=== PATIENT | female | born 1980 | race Caucasian/White ===

== ENCOUNTER 2017-06-02 17:59 | Emergency (ER) | payer MEDICAID | END 2017-06-02 19:46 | disposition home or self-care (01) | LOC: E/R 17:59 | DX: J06.9 Acute upper respiratory infection, unspecified (principal) | CPT/HCPCS: 99284; Z7502 ==

== ENCOUNTER 2017-07-25 20:29 | Emergency (ER) | payer MEDICAID | END 2017-07-26 02:00 | disposition home or self-care (01) | LOC: FTE 20:29 | DX: J20.9 Acute bronchitis, unspecified (principal) | CPT/HCPCS: 99284; Z7502 ==

== ENCOUNTER 2018-05-21 09:49 | Emergency (ER) | payer MEDICAID ==
[2018-05-21 10:37] LABS: ADD UMIC YES; UR ASCORBIC ACID NEGATIVE (NEGATIVE); UR BILIRUBIN (Dip) NEGATIVE (NEGATIVE); UR BLOOD (Dip) 2+ mg/dL (NEGATIVE); UR CLARITY SLIGHTLY CLOUDY (CLEAR); UR COLOR YELLOW (YELLOW); UR GLUCOSE (Dip) NEGATIVE (NEGATIVE); UR KETONES (Dip) NEGATIVE (NEGATIVE); UR LEUKOCYTE ESTERASE (Dip) 1+ Leu/ul (NEGATIVE); UR MUCUS FEW /HPF (NONE SEEN); UR NITRITE (Dip) NEGATIVE (NEGATIVE); UR RBC 3 /HPF (0-5); UR SPECIFIC GRAVITY (Dip) 1.011 (1.003-1.030); UR SQUAMOUS EPITHELIAL CELL FEW /HPF (FEW); UR TOTAL PROTEIN (Dip) NEGATIVE (NEGATIVE); UR UROBILINOGEN (Dip) NEGATIVE (NEGATIVE); UR WBC 6 /HPF (0-5)
[2018-05-21] MEDS: PHENAZOPYRIDINE 100 MG TAB PO (10:52)
[2018-05-21] MEDS: CEPHALEXIN 500 MG CAP PO (10:52)
== END 2018-05-21 11:09 | disposition home or self-care (01) ==
LOC: FTE 09:49
DX: N30.00 Acute cystitis without hematuria (principal)
CPT/HCPCS: 81001; 81025; 99283

== ENCOUNTER 2018-05-26 06:13 | Emergency (ER) | payer MEDICAID ==
[2018-05-26] MEDS: SOD CHLORIDE 0.9% 500 ML IV (07:07)
[2018-05-26] MEDS: ONDANSETRON 4 MG INJ IV (07:08)
[2018-05-26] MEDS: morphine 4 MG/ML VIAL IV (07:08)
[2018-05-26 07:16] LABS: ADD MAN DIFF? NO
[2018-05-26 07:17] LABS: BASOPHILS % 0.3 % (0.0-2.0); EOSINOPHILS # 0.3 10^3/ul (0.0-0.5); EOSINOPHILS % 2.9 % (0.0-7.0); HEMATOCRIT 39.9 % (37.0-47.0); LYMPHOCYTES # 2.3 10^3/ul (0.8-2.9); LYMPHOCYTES % 24.4 % (15.0-51.0); MEAN CORPUSCULAR HEMOGLOBIN 28.5 pg (29.0-33.0); MEAN CORPUSCULAR HGB CONC 32.6 g/dl (32.0-37.0); MEAN CORPUSCULAR VOLUME 87.5 fl (82.0-101.0); MEAN PLATELET VOLUME 10.3 fl (7.4-10.4); MONOCYTE # 0.6 10^3/ul (0.3-0.9); MONOCYTES % 6.3 % (0.0-11.0); PLATELET COUNT 227 10^3/UL (140-415); RED BLOOD COUNT 4.56 10^6/ul (4.20-5.40); RED CELL DISTRIBUTION WIDTH 13.1 % (11.5-14.5)
[2018-05-26 07:17] LABS: WHITE BLOOD COUNT 9.3 10^3/ul (4.8-10.8)
[2018-05-26 07:27] LABS: ADD UMIC YES; UR ASCORBIC ACID NEGATIVE (NEGATIVE); UR BACTERIA FEW /HPF (NONE SEEN); UR BILIRUBIN (Dip) NEGATIVE (NEGATIVE); UR BLOOD (Dip) 2+ mg/dL (NEGATIVE); UR CLARITY SLIGHTLY CLOUDY (CLEAR); UR COLOR YELLOW (YELLOW); UR GLUCOSE (Dip) NEGATIVE (NEGATIVE); UR KETONES (Dip) NEGATIVE (NEGATIVE); UR LEUKOCYTE ESTERASE (Dip) 3+ Leu/ul (NEGATIVE); UR NITRITE (Dip) NEGATIVE (NEGATIVE); UR RBC 16 /HPF (0-5); UR SPECIFIC GRAVITY (Dip) 1.012 (1.003-1.030); UR SQUAMOUS EPITHELIAL CELL MODERATE /HPF (FEW); UR TOTAL PROTEIN (Dip) NEGATIVE (NEGATIVE); UR UROBILINOGEN (Dip) NEGATIVE (NEGATIVE); UR WBC 18 /HPF (0-5)
[2018-05-26 07:41] LABS: ALANINE AMINOTRANSFERASE 28 IU/L (13-69); ALBUMIN 4.2 g/dl (3.3-4.9); ALBUMIN/GLOBULIN RATIO 1.02; ALKALINE PHOSPHATASE 82 IU/L (42-121); ANION GAP 8 (5-13); ASPARTATE AMINO TRANSFERASE 34 IU/L (15-46); BILIRUBIN,INDIRECT 0.2 mg/dl (0-1.1); BILIRUBIN,TOTAL 0.2 mg/dl (0.2-1.3); BLOOD UREA NITROGEN 17 mg/dl (7-20); CALCIUM 9.1 mg/dl (8.4-10.2); CARBON DIOXIDE 28 mmol/L (21-31); CHLORIDE 106 mmol/L (97-110); CREATININE 0.53 mg/dl (0.44-1.00); Estimated GFR > 60 mL/min (>60); GLUCOSE 131 mg/dl (70-220); LIPASE 96 U/L (23-300); POTASSIUM 4.4 mmol/L (3.5-5.1); SODIUM 142 mmol/L (135-144); TOTAL PROTEIN 8.3 g/dl (6.1-8.1)
[2018-05-26] MEDS: CEFTRIAXONE 1 GM/50 ML (PMX) 50 ML IVPB (08:12)
[2018-05-26] MEDS: ACETAMINOPHEN 500 MG TAB PO (09:00)
== END 2018-05-26 09:39 | disposition home or self-care (01) ==
LOC: E/R 06:13
DX: N39.0 Urinary tract infection, site not specified (principal)
CPT/HCPCS: 36415; 80053; 81001; 83690; 85025; 96374; 96375; 99284-25

== ENCOUNTER 2018-08-02 18:57 | Emergency (ER) | payer MEDICAID ==
[2018-08-03] MEDS: SOD CHLORIDE 0.9% 1,000 ML IV (00:32)
[2018-08-03 00:33] LABS: ADD MAN DIFF? NO
[2018-08-03 00:37] LABS: BASOPHIL # 0.1 10^3/ul (0.0-0.1); BASOPHILS % 0.5 % (0.0-2.0); EOSINOPHILS # 0.2 10^3/ul (0.0-0.5); EOSINOPHILS % 1.7 % (0.0-7.0); HEMOGLOBIN 13.2 g/dl (12.0-16.0); LYMPHOCYTES # 2.1 10^3/ul (0.8-2.9); LYMPHOCYTES % 20.3 % (15.0-51.0); MEAN CORPUSCULAR HEMOGLOBIN 28.6 pg (29.0-33.0); MEAN CORPUSCULAR VOLUME 86.8 fl (82.0-101.0); MEAN PLATELET VOLUME 10.3 fl (7.4-10.4); MONOCYTE # 0.6 10^3/ul (0.3-0.9); NEUTROPHIL # 7.3 10^3/ul (1.6-7.5); NEUTROPHILS % 70.5 % (39.0-77.0); PLATELET COUNT 251 10^3/UL (140-415); RED BLOOD COUNT 4.61 10^6/ul (4.20-5.40); RED CELL DISTRIBUTION WIDTH 13.3 % (11.5-14.5)
[2018-08-03 00:37] LABS: WHITE BLOOD COUNT 10.3 10^3/ul (4.8-10.8)
[2018-08-03 00:47] LABS: ADD UMIC YES; UR ASCORBIC ACID NEGATIVE (NEGATIVE); UR BACTERIA FEW /HPF (NONE SEEN); UR BILIRUBIN (Dip) NEGATIVE (NEGATIVE); UR BLOOD (Dip) 3+ mg/dL (NEGATIVE); UR CLARITY CLOUDY (CLEAR); UR COLOR RED (YELLOW); UR GLUCOSE (Dip) NEGATIVE (NEGATIVE); UR KETONES (Dip) NEGATIVE (NEGATIVE); UR LEUKOCYTE ESTERASE (Dip) TRACE Leu/ul (NEGATIVE); UR MUCUS FEW /HPF (NONE SEEN); UR NITRITE (Dip) NEGATIVE (NEGATIVE); UR RBC > 182 /HPF (0-5); UR SPECIFIC GRAVITY (Dip) 1.014 (1.003-1.030); UR SQUAMOUS EPITHELIAL CELL FEW /HPF (FEW); UR TOTAL PROTEIN (Dip) 2+ mg/dl (NEGATIVE); UR UROBILINOGEN (Dip) NEGATIVE (NEGATIVE); UR WBC 0 /HPF (0-5)
[2018-08-03 01:05] LABS: ALANINE AMINOTRANSFERASE 47 IU/L (13-69); ALBUMIN 4.2 g/dl (3.3-4.9); ALKALINE PHOSPHATASE 86 IU/L (42-121); ANION GAP 9 (5-13); ASPARTATE AMINO TRANSFERASE 45 IU/L (15-46); BILIRUBIN,INDIRECT 0.3 mg/dl (0-1.1); BILIRUBIN,TOTAL 0.3 mg/dl (0.2-1.3); BLOOD UREA NITROGEN 11 mg/dl (7-20); CALCIUM 9.2 mg/dl (8.4-10.2); CARBON DIOXIDE 26 mmol/L (21-31); CHLORIDE 105 mmol/L (97-110); CREATININE 0.47 mg/dl (0.44-1.00); Estimated GFR > 60 mL/min (>60); GLUCOSE 143 mg/dl (70-220); POTASSIUM 3.8 mmol/L (3.5-5.1); SODIUM 140 mmol/L (135-144)
[2018-08-03 01:33] LABS: LIPASE 70 U/L (23-300)
[2018-08-03] MEDS: KETOROLAC 30 MG INJ IV (01:56)
== END 2018-08-03 02:18 | disposition home or self-care (01) ==
LOC: FTE 18:57
DX: N93.9 Abnormal uterine and vaginal bleeding, unspecified (principal)
CPT/HCPCS: 36415; 76830; 76856; 80053; 81001; 81025; 83690; 85025; 96374; 99285-25

== ENCOUNTER 2019-01-22 19:21 | Emergency (ER) | payer MEDICAID | END 2019-01-22 21:11 | disposition home or self-care (01) | LOC: FTE 19:21 | DX: M25.562 Pain in left knee (principal); M72.2 Plantar fascial fibromatosis | CPT/HCPCS: 99282; Z7502 ==